=== PATIENT | male | born 1960 | race American Indian/Alaskan Native ===

== ENCOUNTER 2017-07-08 11:16 | Inpatient (IN) | payer MEDICARE, BC ==
[2017-07-08 13:15] LABS: BASO # 0.1 K/uL (0.0-0.2); EOS # 0.1 K/uL (0.0-0.7); EOS % 1.2 % (0.0-4.0); HEMOGLOBIN 13.6 g/dL (12.0-18.0); LYMPH % 18.8 % (20.0-40.0); MEAN CELL VOLUME 96.1 fL (80.0-94.0); MEAN CORPUSCULAR HEMOGLOBIN 32.6 pg (27.0-31.0); MEAN CORPUSCULAR HGB CONC 33.9 g/dL (33.0-37.0); MEAN PLATELET VOLUME 9.2 fL (7.2-11.7); MONO # 0.5 K/uL (0.0-0.8); MONO % 8.7 % (0.0-10.0); NEUT # 3.9 K/uL (1.8-7.0); NEUT % 70.3 % (50.0-75.0); NRBC % 0.1 % (0.0-2.0); RBC 4.18 Mil/uL (4.40-5.90); RED CELL DISTRIBUTION WIDTH 15.4 % (11.5-14.5); WHITE BLOOD COUNT 5.6 K/uL (4.8-10.8)
--- NOTE | 2017-07-08 13:23 | C.PDOC ---
History Of Present Illness 57 yo male w/PMHx of HTN, DM, ESRD ( on HD M,W,Fr), PVD come in to ED after was evaluated by for further evaluation of Right foot pain, chronic ulcers. Pt reports, pain from Right knee down to Right foot chronic for past few weeks, associated with non-healing ulcers over Right foot. Otherwise, pt denies fever, chills, CP, SOB, dyspnea, diaphoresis, palpitation, denies known trauma or injury, denies new weakness, numbness, sensory or vascular deficit to Right leg. Ambulate to ED, not in any apparent distress. Time Seen by Provider: 07/08/17 12:34 Chief Complaint (Nursing): Medical Clearance History Per: Patient Past Medical History Reviewed: Historical Data, Nursing Documentation, Vital Signs Vital Signs: Last Vital Signs Temp 98 F 07/08/17 11:27 Pulse 101 H 07/08/17 11:27 Resp 18 07/08/17 11:27 BP 116/77 07/08/17 11:27 Pulse Ox 98 07/08/17 13:30 - Medical History PMH: CHF, Diabetes, HTN, End Stage Renal Disease Surgical History: Pacemaker Family History: States: No Known Family Hx - Social History Hx Alcohol Use: No Hx Substance Use: No - Immunization History Hx Tetanus Toxoid Vaccination: No Hx Influenza Vaccination: No Hx Pneumococcal Vaccination: No Review Of Systems Except As Marked, All Systems Reviewed And Found Negative. Constitutional: Negative for: Fever, Chills Eyes: Negative for: Vision Change ENT: Negative for: Throat Pain Cardiovascular: Negative for: Chest Pain, Palpitations Respiratory: Negative for: Cough, Shortness of Breath, Wheezing Gastrointestinal: Negative for: Nausea, Vomiting, Abdominal Pain Musculoskeletal: Positive for: Leg Pain, Foot Pain. Negative for: Neck Pain Skin: Positive for: Lesions Neurological: Negative for: Numbness, Altered Mental Status Physical Exam - Physical Exam Appears: Well, Non-toxic, No Acute Distress Skin: Normal Color, Warm, Dry, Other (Right foot small tender ulcer over dorsal foot, no edema, no eruthema, no discharges.) Eye(s): bilateral: PERRL Nose: No Flaring, No Discharge Oral Mucosa: Moist, No Drooling Tongue: Normal Appearing Lips: Normal Appearing Throat: No Drooling Neck: Trachea Midline, Supple Cardiovascular: Rhythm Regular Respiratory: No Decreased Breath Sounds, No Accessory Muscle Use, No Stridor, No Wheezing Gastrointestinal/Abdominal: Soft, No Tenderness Extremity: Normal ROM (B/L LEs), Tenderness (diffuse Right lowr leg), No Deformity, No Swelling Neurological/Psych: Oriented x3, Normal Speech, Normal Motor, Normal Sensation, Normal Reflexes ED Course And Treatment - Laboratory Results Result Diagrams: 07/08/17 13:04 07/08/17 13:04 O2 Sat by Pulse Oximetry: 98 Pulse Ox Interpretation: Normal Disposition - Disposition Disposition: HOSPITALIZED Disposition Time: 14:08 Condition: STABLE Forms: [facility] ([place]) - Clinical Impression Clinical Impression: PVD (peripheral vascular disease), Gangrene, ESRD (end stage renal disease)
[2017-07-08 13:24] LABS: PROTHROMBIN TIME 11.3 SECONDS (9.7-12.2)
[2017-07-08 13:33] LABS: CALCIUM 10.2 mg/dl (8.6-10.4)
--- NOTE | 2017-07-08 13:37 | RAD ---
HISTORY: COMPARISON: No prior. TECHNIQUE: Chest PA and lateral FINDINGS: LINES AND TUBES: There is a right axillary endovascular stent graft. LUNG AND PLEURA: The lungs are well inflated and clear. HEART AND MEDIASTINUM: The heart is not enlarged. Atherosclerotic aortic arch calcifications are present. There is a left-sided AICD. The hilar and mediastinal contours are within normal limits. SKELETAL STRUCTURES: The bony structures are within normal limits for the patient's age. VISUALIZED UPPER ABDOMEN: Normal. OTHER FINDINGS: None. IMPRESSION: No active pulmonary disease.
--- NOTE | 2017-07-08 14:57 | CP.PCM.CON ---
History of Present Illness - History of Present Illness History of Present Illness: Vascular Surgery: Dr Wiggins Patient is a 57-year-old male with a PMHx of HTN, DM, ESRD (on HD M,W,Fr) and PVD who was consulted for evaluation of right foot pain and foot ulcers. His was present at bedside. He was seen by Dr. Wiggins earlier today and was sent to the hospital. Patient says that the pain started 1 week ago. He describes the pain as progressive, constant, sharp and burning. Walking makes the pain worse. He has tried Motrin and a cream he cannot remember the name of to help alleviate the pain. He reports this helps a little. He also has episodic leg cramping. Patient is diabetic and has had peripheral neuropathy in his hands and feet for many years now. Reports that he has dizziness and nausea when looking up that started 1 week ago when his foot pain began. ROS: +right foot ulcer, foot pain, leg cramping, dizziness, nausea, sweating, constipation, blurry vision, cough Denies fever, chills, CP, SOB, dyspnea, palpitation, changes in urination, trouble swallowing, vomiting, abdominal pain, diarrhea, denies known trauma or injury, denies new weakness, numbness, sensory or vascular deficit to right leg PMH: ESRD, DM, CHF, R eye cataract, pacemaker PSH: cardiac cath 2005, pacemaker 2005, right eye surgery 2008, dialysis graft 2011 Fam Hx: father diabetic with multiple amputations, grandmother - [place], stroke, grandfather - [place], son - from [place] January of last year Social: past smoker - 2 PPD; quit 20 yrs ago. Occasional alcohol use (beer). Denies illicit drug use. Review of Systems - Review of Systems All systems: reviewed and no additional remarkable complaints except Review of Systems: As per HPI Past Patient History - Infectious Disease Hx of Infectious Diseases: None - Past Medical History & Family History Past Medical History?: Yes Pertinent Family History: As per HPI - Past Social History Smoking Status: Former Smoker Alcohol: Occasional Drugs: Denies - CARDIAC Hx Congestive Heart Failure: Yes Hx Hypertension: Yes Hx Pacemaker: Yes Hx Peripheral Vascular Disease: Yes - RENAL Hx Dialysis: Yes Type of Dialysis Access: right shunt Date of Last Dialysis Treatment: 07/07/17 - ENDOCRINE/METABOLIC Hx Diabetes Mellitus Type 2: Yes - PSYCHIATRIC Hx Substance Use: No - SURGICAL HISTORY Hx Surgeries: Yes Other/Comment: pacemaker insertion - ANESTHESIA Hx Anesthesia: Yes Hx Anesthesia Reactions: No Hx Malignant Hyperthermia: No Meds Allergies/Adverse Reactions: Allergies Allergy/AdvReac Type Severity Reaction Status Date / Time peanut Allergy Verified 07/08/17 11:31 strawberry Allergy Verified 07/08/17 11:31 Physical Exam - Constitutional Appears: Well, Non-toxic, Toxic, No Acute Distress - Head Exam Head Exam: ATRAUMATIC, NORMAL INSPECTION, NORMOCEPHALIC - Eye Exam Eye Exam: EOMI, Normal appearance, PERRL Pupil Exam: NORMAL ACCOMODATION - ENT Exam ENT Exam: Mucous Membranes Moist - Neck Exam Neck exam: Positive for: Normal Inspection - Respiratory Exam Respiratory Exam: Clear to Auscultation Bilateral, NORMAL BREATHING PATTERN - Cardiovascular Exam Cardiovascular Exam: REGULAR RHYTHM, RRR, +S1, +S2. absent: Rubs, Systolic Murmur - GI/Abdominal Exam GI & Abdominal Exam: Normal Bowel Sounds, Soft. absent: Tenderness - Extremities Exam Additional comments: Right foot ulcer over dorsal foot, tender, no edema, erythema, or discharge - Skin Skin Exam: Abrasion Results - Vital Signs Recent Vital Signs: Last Vital Signs Temp 98 F 07/08/17 11:27 Pulse 101 H 07/08/17 11:27 Resp 18 07/08/17 11:27 BP 116/77 07/08/17 11:27 Pulse Ox 98 07/08/17 14:10 - Labs Result Diagrams: 07/08/17 13:04 07/08/17 13:04 Labs: Laboratory Results - last 24 hr 07/08/17 07/08/17 07/08/17 13:04 13:04 13:04 WBC 5.6 RBC 4.18 L Hgb 13.6 Hct 40.2 MCV 96.1 H MCH 32.6 H MCHC 33.9 RDW 15.4 H Plt Count 163 MPV 9.2 Neut % (Auto) 70.3 Lymph % (Auto) 18.8 L [place] % (Auto) 8.7 Eos % (Auto) 1.2 Baso % (Auto) 1.0 Neut # (Auto) 3.9 Lymph # (Auto) 1.0 [place] # (Auto) 0.5 Eos # (Auto) 0.1 Baso # (Auto) 0.1 PT 11.3 INR 1.0 APTT 32 Sodium 141 Potassium 4.1 Chloride 93 L Carbon Dioxide 28 Anion Gap 24 H BUN 47 H Creatinine 11.1 H* Est GFR ( Amer) 6 Est GFR (Non-Af Amer) 5 Random Glucose 166 H Calcium 10.2 Total Bilirubin 0.6 AST 36 ALT 33 Alkaline Phosphatase 74 Total Protein 7.9 Albumin 4.0 Globulin 4.0 H Albumin/Globulin Ratio 1.0 Assessment & Plan - Assessment and Plan (Free Text) Assessment: 57M w/ PMH of ESRD on HD, DM, CHF: Sx consulted for right foot pain and right foot ulcer likely due to PVD. Plan: Admit CTA of abd/pel w/ ileofem runoff arterial duplex b/l may need to coordinate CTA with dialysis schedule further recs pending work-up d/w Dr Rosalie Che, PGY3 - Date & Time Date: 07/08/17 Time: 15:11
--- NOTE | 2017-07-08 15:23 | CP.PCM.CON ---
History of Present Illness - History of Present Illness History of Present Illness: Nephrology Consultation Note: Assessment: Stable Diabetic chronic Kidney Disease (E11.22) Hypertensive Chronic Kidney Disease (I12.0) End stage renal disease (N18.6) dependence on hemodialysis (Z99.2) (MWF) via AVF Anemia (D64.9), Hyperphosphatemia (E83.39), Secondary Hyperparathyroidism (E21.1 ), HTN (I12.0) PVD with non healing Rt leg ulcer hx of PPM Plan: No acute need for dialysis today. Will plan for dialysis tomorrow. Continue with Nephrovite 1 tab/day. PRBC as needed for anemia. not On ZACHERY as last Hb 13.8 Continue with phos binders home dose, check phos level Continue with calcitriol BP control with meds as ordered. Glycemic control, Dialysis consistent diet Further work up/management as per primary team Dose meds/antibiotics (if needed) for ESRD status. Avoid fleets enema/magnesium based laxatives. Thanks for allowing me to participate in care of your patient. Will follow patient with you. Please call if any Qs Dr Obed Ortiz Office: [phone] Chief Complaint;leg ulcer HPI: Pt is a 57 M with hx of ESRD on hemodialysis (MWF) via, last dialysis mon, chronic anemia, hyperphosphatemia, secondary hyperparathyroidism, Diabetes Mellitus, hypertension, PVD presented with complaints of leg ulcer and leg claudication pain concerns for PVD and being planned for PVD eval and further interventions renal consult for ESRD management. he has been on HD x 6 years ROS: Cardiovascular: No chest pain. Pulmonary: No shortness of breath Gastrointestinal: denies abdominal pain No nausea. No vomiting. Genitourinary: No pain while urinating. Denies blood in urine. makes only small amount of urine All other negative except as mentioned in HPI Physical Examination: General Appearance: Comfortable, in no acute respiratory distress, co-operative . Vitals reviewed and noted as below Head; Atraumatic, normocephalic ENT: no ulcers no thrush. Tongue is midline. Oropharynx: no rash or ulcers. EYES: Pupils are equal, round and reactive to light accommodation. Eye muscles and extraocular movement intact. Sclera is anicteric. Neck; supple no lymphadenopathy, no thyromegaly or bruit Lungs: Normal respiratory rate/effort. Breath sounds bilateral equal and clear Heart: Normal rate. s1s2 normal. No rub or gallop. Extremities: no edema. No varicose veins. RLE in dressing Neurological: Patient is alert, awake and oriented to person, place and time. No focal deficit. Strength bilateral appropriate and equal Skin: Warm and dry. Normal turgor. No rash. Palpitation: Normal elasticity for age Abdomen: Abdomen is soft. Bowel sounds +. There is no abdominal tenderness, no guarding/rigidity or organomegaly Psych: normal insight and normal affect/mood MSK: no joint tenderness or swelling. Digits and nails normal, no deformity : kidney or bladder not palpable Access: AVF Labs/imaging reviewed. Past medical history, past surgical history, family history, social history, allergy reviewed and noted as below Family Hx: no hx of CKD. Non contributory Past Patient History - Infectious Disease Hx of Infectious Diseases: None - Past Medical History & Family History Past Medical History?: Yes - Past Social History Smoking Status: Former Smoker Alcohol: Occasional Drugs: Denies - CARDIAC Hx Congestive Heart Failure: Yes Hx Hypertension: Yes Hx Pacemaker: Yes Hx Peripheral Vascular Disease: Yes - RENAL Hx Dialysis: Yes Type of Dialysis Access: right shunt Date of Last Dialysis Treatment: 07/07/17 - ENDOCRINE/METABOLIC Hx Diabetes Mellitus Type 2: Yes - PSYCHIATRIC Hx Substance Use: No - SURGICAL HISTORY Hx Surgeries: Yes Other/Comment: pacemaker insertion - ANESTHESIA Hx Anesthesia: Yes Hx Anesthesia Reactions: No Hx Malignant Hyperthermia: No Meds Allergies/Adverse Reactions: Allergies Allergy/AdvReac Type Severity Reaction Status Date / Time peanut Allergy Verified 07/08/17 11:31 strawberry Allergy Verified 07/08/17 11:31 - Medications Medications: Current Medications Vitamin B Complex/Vit C/Folic Acid (Nephro-Hair) 1 tab PO 0800 JERED Results - Vital Signs Recent Vital Signs: Last Vital Signs Temp 98 F 07/08/17 11:27 Pulse 101 H 07/08/17 11:27 Resp 18 07/08/17 11:27 BP 116/77 07/08/17 11:27 Pulse Ox 98 07/08/17 14:10 - Labs Result Diagrams: 07/08/17 13:04 07/08/17 13:04 Labs: Laboratory Results - last 24 hr 07/08/17 07/08/17 07/08/17 13:04 13:04 13:04 WBC 5.6 RBC 4.18 L Hgb 13.6 Hct 40.2 MCV 96.1 H MCH 32.6 H MCHC 33.9 RDW 15.4 H Plt Count 163 MPV 9.2 Neut % (Auto) 70.3 Lymph % (Auto) 18.8 L [place] % (Auto) 8.7 Eos % (Auto) 1.2 Baso % (Auto) 1.0 Neut # (Auto) 3.9 Lymph # (Auto) 1.0 [place] # (Auto) 0.5 Eos # (Auto) 0.1 Baso # (Auto) 0.1 PT 11.3 INR 1.0 APTT 32 Sodium 141 Potassium 4.1 Chloride 93 L Carbon Dioxide 28 Anion Gap 24 H BUN 47 H Creatinine 11.1 H* Est GFR ( Amer) 6 Est GFR (Non-Af Amer) 5 Random Glucose 166 H Calcium 10.2 Total Bilirubin 0.6 AST 36 ALT 33 Alkaline Phosphatase 74 Total Protein 7.9 Albumin 4.0 Globulin 4.0 H Albumin/Globulin Ratio 1.0
[2017-07-08] MEDS ORDERED: Iodixanol 320 mg/ml 150 ml Bottle IV ONE (15:27)
--- NOTE | 2017-07-08 19:27 | CP.PCM.HP ---
History of Present Illness - History of Present Illness History of Present Illness: 57-year-old man with history of for diabetes hypertension and says that his renal disease on hemodialysis Friday for last 6 years seen by came in with the pain on the right foot with the foot ulcers patient was seen by Dr. Boudreaux and also seen by the medical device sales consultant who works with Dr. Wiggins Patient describes has that been going on for almost 1 week and which is progressive constant sharp and to a point where Motrin especially not much patient denies any fever patient denies any chills patient complains of leg pain. Patient denies nausea vomiting Review of system right foot ulcer foot pain leg cramping dizziness complains of constipation Denies fever chills chest pain shortness of breath blurring of vision Present on Admission - Present on Admission Any Indicators Present on Admission: No Past Patient History - Infectious Disease Hx of Infectious Diseases: None - Past Medical History & Family History Past Medical History?: Yes - Past Social History Smoking Status: Former Smoker Alcohol: Occasional Drugs: Denies - CARDIAC Hx Congestive Heart Failure: Yes Hx Hypertension: Yes Hx Pacemaker: Yes Hx Peripheral Vascular Disease: Yes - RENAL Hx Dialysis: Yes Type of Dialysis Access: right shunt Date of Last Dialysis Treatment: 07/07/17 - ENDOCRINE/METABOLIC Hx Diabetes Mellitus Type 2: Yes - PSYCHIATRIC Hx Substance Use: No - SURGICAL HISTORY Hx Surgeries: Yes Other/Comment: pacemaker insertion - ANESTHESIA Hx Anesthesia: Yes Hx Anesthesia Reactions: No Hx Malignant Hyperthermia: No Meds Allergies/Adverse Reactions: Allergies Allergy/AdvReac Type Severity Reaction Status Date / Time peanut Allergy Verified 07/08/17 11:31 strawberry Allergy Verified 07/08/17 11:31 Results - Vital Signs Recent Vital Signs: Last Vital Signs Temp 98.1 F 07/08/17 17:10 Pulse 78 07/08/17 17:10 Resp 16 07/08/17 17:10 BP 99/78 L 07/08/17 17:10 Pulse Ox 100 07/08/17 17:10 - Labs Result Diagrams: 07/08/17 13:04 07/08/17 13:04 Labs: Laboratory Results - last 24 hr 07/08/17 07/08/17 07/08/17 13:04 13:04 13:04 WBC 5.6 RBC 4.18 L Hgb 13.6 Hct 40.2 MCV 96.1 H MCH 32.6 H MCHC 33.9 RDW 15.4 H Plt Count 163 MPV 9.2 Neut % (Auto) 70.3 Lymph % (Auto) 18.8 L [place] % (Auto) 8.7 Eos % (Auto) 1.2 Baso % (Auto) 1.0 Neut # (Auto) 3.9 Lymph # (Auto) 1.0 [place] # (Auto) 0.5 Eos # (Auto) 0.1 Baso # (Auto) 0.1 PT 11.3 INR 1.0 APTT 32 Sodium 141 Potassium 4.1 Chloride 93 L Carbon Dioxide 28 Anion Gap 24 H BUN 47 H Creatinine 11.1 H* Est GFR ( Amer) 6 Est GFR (Non-Af Amer) 5 Random Glucose 166 H Calcium 10.2 Total Bilirubin 0.6 AST 36 ALT 33 Alkaline Phosphatase 74 Total Protein 7.9 Albumin 4.0 Globulin 4.0 H Albumin/Globulin Ratio 1.0 Assessment & Plan - Assessment and Plan (Free Text) Plan: CTA of abd/pel w/ ileofem runoff arterial duplex b/l may need to coordinate CTA with dialysis schedule further recs pending work-up renal consult vascular surg consult mx as ordered
[2017-07-08] MEDS ORDERED: Vancomycin 1 gm/NS 200 ml 1 GM/200 ML BAG IVPB SCH (20:00)
[2017-07-09] MEDS: Multivitamin Vitamin B Complex (Nephro-Vite) Tab PO SCH (07:48)
[2017-07-09] MEDS: Lidocaine/Prilocaine 2.5%-2.5% Cream (5 gm) TOP SCH (08:00)
--- NOTE | 2017-07-09 09:22 | CT ---
PROCEDURE: CT Angiography Abdomen, Pelvis and Lower Extremity with Contrast HISTORY: Right foot pain, chronic. ulcer COMPARISON: None. TECHNIQUE: Technique: CT angiography of the abdomen, pelvis and bilateral lower extremities performed in the arterial phase of enhancement. Coronal and sagittal reformats, and well as rotating MIP images of the vessels generated at the workstation. Intravenous contrast dose: 100 milliliters Visipaque 320 Radiation dose: Total exam DLP = 1955.02 MGy-cm. This CT exam was performed using one or more of the following dose reduction techniques: Automated exposure control, adjustment of the mA and/or kV according to patient size, and/or use of iterative reconstruction technique. FINDINGS: CT ANGIOGRAPHY: ABDOMINAL AORTA:: The abdominal is unremarkable. MAJOR AORTIC BRANCHES: Celiac [place]: Unremarkable. Superior mesenteric artery: Unremarkable. Inferior mesenteric artery: Unremarkable. Renal arteries: Unremarkable. PELVIC ARTERIES: Right Common Iliac: Unremarkable. Right External Iliac: Unremarkable. Right Internal Iliac: Unremarkable. Left Common Iliac: Unremarkable. Left External Iliac: Unremarkable. Left Internal Iliac: Unremarkable. RIGHT LOWER EXTREMITY ARTERIES: Right Common Femoral: Unremarkable. Right Superficial Femoral: There is moderate stenosis of the distal SFA. Right Profunda Femoris: Unremarkable. Right Popliteal:There is moderate stenosis of the popliteal artery. Right Anterior Tibial: Severe stenosis of the proximal anterior tibial artery. There is occlusion of the distal anterior tibial artery. Right Tibioperoneal Trunk: Moderate calcific plaque of the tibioperoneal trunk limits evaluation per Right Posterior Tibial: Severe stenosis of the proximal posterior tibial artery and an occlusion of the distal posterior tibial artery. Right Peroneal: Severe calcific plaque throughout the peroneal artery which limits evaluation. The peroneal artery is believed to be either severely stenotic in the mid and distal segment or occluded. Right dorsalis pedis : Unremarkable. LEFT LOWER EXTREMITY ARTERIES: Left Common Femoral: Unremarkable. Left Superficial Femoral: Unremarkable. Left Profunda Femoris: Unremarkable. Left Popliteal: Unremarkable. Left Anterior Tibial: severe stenosis of the mid anterior tibial artery. The distal anterior tibial artery is patent. Left Tibioperoneal Trunk: Moderate stenosis of the tibioperoneal artery. Left Posterior Tibial: Unremarkable Left Peroneal: Moderate calcific plaque of the peroneal artery with possible moderate to severe stenosis of the mid and distal segment. Left Dorsalis pedis: Unremarkable. NON-ANGIOGRAPHIC ASPECT OF THE EXAM: LOWER THORAX: Unremarkable. LIVER: Unremarkable. No gross lesion or ductal dilatation. GALLBLADDER AND BILE DUCTS: Unremarkable. PANCREAS: Unremarkable. No gross lesion or ductal dilatation. SPLEEN: Unremarkable. ADRENALS: Unremarkable. No mass. KIDNEYS AND URETERS: Unremarkable. No hydronephrosis. No solid mass. STOMACH AND BOWEL: Unremarkable. No obstruction. No gross mural thickening. APPENDIX: Normal appendix. PERITONEUM: Unremarkable. No free fluid. No free air. LYMPH NODES: Unremarkable. No enlarged lymph nodes. BLADDER: Unremarkable. REPRODUCTIVE: Unremarkable. BONES: No acute fracture. OTHER FINDINGS: None. IMPRESSION: CT ANGIOGRAM ABDOMEN/PELVIS: 1. Essentially unremarkable CT angiogram of the abdomen pelvis. LEFT LOWER EXTREMITY CT ANGIOGRAM: 1. Common femoral artery, profunda femoral artery, superficial femoral artery, popliteal artery normal. 2. Runoff shows a patent posterior tibial artery. The tibioperoneal artery is heavily calcified which limits evaluation. There is severe stenosis or occlusion of the mid peroneal artery and also of the mid anterior tibial artery. RIGHT LOWER EXTREMITY CT ANGIO: 1. Common femoral artery profunda femoral are normal. 2. Moderate stenosis of the distal superficial femoral artery and popliteal artery. 3. Runoff shows severe calcific plaque and moderate stenosis of the proximal anterior tibial artery. There is occlusion of the distal anterior tibial artery. 4. Both the peroneal and posterior tibial artery have moderate severe calcific plaque and are possibly occluded in the mid and distal segments.
--- NOTE | 2017-07-09 10:13 | CP.PCM.CON ---
History of Present Illness - History of Present Illness History of Present Illness: Podiatry note for Dr. Gonzalez 57 yo male patient w/PMHx of HTN, DM, ESRD ( on HD M,W,Fr), PVD was seen at bedside this morning after request for podiatry consultation. Patient is resting comfortably in bed with no overnight acute distress. This patient is well known to Dr. Gonzalez. Patient states he developed open ulceration to plantar aspect of right foot for a long time which have now closed. He does not recall how the ulceration started. Patient complains of mild pain to right lower extremity distal to ankle joint. Patient denies of any other pedal complaints. Patient denies of any N/V/F/C or SOB today Past Patient History - Infectious Disease Hx of Infectious Diseases: None - Past Medical History & Family History Past Medical History?: Yes - Past Social History Smoking Status: Former Smoker Alcohol: Occasional Drugs: Denies - CARDIAC Hx Congestive Heart Failure: Yes Hx Hypertension: Yes Hx Pacemaker: Yes Hx Peripheral Vascular Disease: Yes - RENAL Hx Dialysis: Yes Type of Dialysis Access: right shunt Date of Last Dialysis Treatment: 07/07/17 - ENDOCRINE/METABOLIC Hx Diabetes Mellitus Type 2: Yes - MUSCULOSKELETAL/RHEUMATOLOGICAL Hx Falls: No - PSYCHIATRIC Hx Substance Use: No - SURGICAL HISTORY Hx Surgeries: Yes Other/Comment: pacemaker insertion - ANESTHESIA Hx Anesthesia: Yes Hx Anesthesia Reactions: No Hx Malignant Hyperthermia: No Meds Allergies/Adverse Reactions: Allergies Allergy/AdvReac Type Severity Reaction Status Date / Time peanut Allergy Verified 07/08/17 11:31 strawberry Allergy Verified 07/08/17 11:31 - Medications Medications: Current Medications Heparin Sodium (Porcine) (Heparin) 5,000 units SC Q12 [facility] Ceftriaxone Sodium 1 gm/ (Sodium Chloride) 100 mls @ 100 mls/hr IVPB DAILY [facility] PRN Reason: Protocol Stop: 07/19/17 10:01 Vancomycin/Sodium Chloride (Vancomycin 1 Gm/Ns 200 Ml) 1 gm in 200 mls @ 133 mls/hr IVPB Q24H [facility] PRN Reason: Protocol Stop: 07/13/17 20:01 Last Admin: 07/08/17 21:04 Dose: 133 mls/hr Lidocaine/Prilocaine (Emla) 0.5 gm TOP MWF [facility] Pneumococcal Polyvalent Vaccine (Pneumovax 23 Vaccine) 0.5 ml IM .ONCE ONE Stop: 07/10/17 10:01 Sevelamer Carbonate (Renvela) 2,400 mg PO TIDCC [facility] Last Admin: 07/09/17 07:48 Dose: 2,400 mg Vitamin B Complex/Vit C/Folic Acid (Nephro-Hair) 1 tab PO 0800 [facility] Last Admin: 07/09/17 07:48 Dose: 1 tab Physical Exam - Constitutional Appears: Well, Non-toxic, No Acute Distress - Head Exam Head Exam: ATRAUMATIC (e) - Extremities Exam Additional comments: Right lower extremity exam DERM: No open wound noted. Early stage ulceration noted to plantar aspect of right foot sub-met head 5. No drainage is noted. No mal-odor noted. No sign of acute infection is noted. VASC: Non-palpable DP and PT noted bilaterally. [employer] less than 3 seconds to all digits ORTHO: Pain on palpation to joints distal to ankle. Decreased ROM 2ndary to guarding NEURO: Gross sensation intact - Neurological Exam Neurological exam: Alert, Oriented x3 - Psychiatric Exam Psychiatric exam: Normal Affect, Normal Mood - Skin Skin Exam: Normal Color, Warm Results - Vital Signs Recent Vital Signs: Last Vital Signs Temp 97.9 F 07/09/17 09:37 Pulse 89 07/09/17 09:37 Resp 20 07/09/17 09:37 BP 134/85 07/09/17 09:37 Pulse Ox 98 07/09/17 09:37 - Labs Result Diagrams: 07/08/17 13:04 07/08/17 13:04 Labs: Laboratory Results - last 24 hr 07/08/17 07/08/17 07/08/17 13:04 13:04 13:04 WBC 5.6 RBC 4.18 L Hgb 13.6 Hct 40.2 MCV 96.1 H MCH 32.6 H MCHC 33.9 RDW 15.4 H Plt Count 163 MPV 9.2 Neut % (Auto) 70.3 Lymph % (Auto) 18.8 L [place] % (Auto) 8.7 Eos % (Auto) 1.2 Baso % (Auto) 1.0 Neut # (Auto) 3.9 Lymph # (Auto) 1.0 [place] # (Auto) 0.5 Eos # (Auto) 0.1 Baso # (Auto) 0.1 PT 11.3 INR 1.0 APTT 32 Sodium 141 Potassium 4.1 Chloride 93 L Carbon Dioxide 28 Anion Gap 24 H BUN 47 H Creatinine 11.1 H* Est GFR ( Amer) 6 Est GFR (Non-Af Amer) 5 Random Glucose 166 H Calcium 10.2 Total Bilirubin 0.6 AST 36 ALT 33 Alkaline Phosphatase 74 Total Protein 7.9 Albumin 4.0 Globulin 4.0 H Albumin/Globulin Ratio 1.0 Assessment & Plan - Assessment and Plan (Free Text) Assessment: 57 yo male patient with right foot chronic ulceration Plan: Patient was seen, evaluated labs and vitals reviewed discussed in detail with attending Dr. Gonzalez Right foot dressed with DSD Arterial Duplex result pending Possible bypass intervention by Dr. Wiggins Podiatry will continue to follow inhouse
--- NOTE | 2017-07-09 10:32 | VASCLAB ---
STUDY DESCRIPTION: HISTORY: Right foot pain, chronic ulcers PRIORS: None. TECHNIQUE: Pulse volume recording waveforms and segmental pressures of bilateral lower extremities at multiple levels were obtained. Ankle Brachial Indices (ABIs) were calculated. Report prepared by KARTHIKEYAN Keita, RVT RIGHT LOWER EXTREMITY: * Brachial artery: Pressure - mmHg. * High thigh: Pressure - 220 mmHg: Ratio - NC: PVR waveform - Pulsatile * Low thigh: Pressure - 181 mmHg: Ratio - 1.89 PVR waveform: Pulsatile * Calf: Pressure - 220 mmHg: Ratio - CN PVR waveform: Pulsatile * Posterior tibial Artery: Pressure - mmHg: Ratio - PVR waveform: Pulsatile * Dorsalis pedis Artery: Pressure - 109 mmHg: Ratio - 1.14 PVR waveform: Pulsatile * Great toe: Pressure - mmHg: Ratio - PVR waveform: Ankle brachial index (RICKEY): 1.14 LEFT LOWER EXTREMITY: * Brachial artery: Pressure - 96 mmHg. * High thigh: Pressure - 220 mmHg: Ratio - NC: PVR waveform - Pulsatile * Low thigh: Pressure - 148 mmHg: Ratio - 1.54 PVR waveform: Pulsatile * Calf: Pressure - 220 mmHg: Ratio - NC PVR waveform: Pulsatile * Posterior tibial Artery: Pressure - mmHg: Ratio - PVR waveform: Pulsatile * Dorsalis pedis Artery: Pressure - 50 mmHg: Ratio - 0.52 PVR waveform: Pulsatile * Great toe: Pressure - mmHg: Ratio - PVR waveform: Ankle brachial index (RICKEY): 0.52 OTHER FINDINGS: PHYLICIA Pitts notified about the findings. IMPRESSION: Right: There was no evidence of hemodynamically significant arterial insufficiency in the right lower extremity. However, metatarsal pulse volume recording waveform is suggestive of distal small artery diseases. Left: This exam reveals moderately decreased perfusion of the left lower extremity, noted at the tibial and distal small artery levels.
--- NOTE | 2017-07-09 10:57 | CP.PCM.PN ---
Subjective - Date & Time of Evaluation Date of Evaluation: 07/09/17 Time of Evaluation: 09:15 - Subjective Subjective: clinically same Objective - Vital Signs/Intake and Output Vital Signs (last 24 hours): Temp Pulse Resp BP Pulse Ox 97.4 F L 69 16 112/70 98 07/09/17 10:11 07/09/17 10:11 07/09/17 10:11 07/09/17 10:40 07/09/17 09:55 Intake and Output: 07/09/17 07/09/17 06:59 18:59 Intake Total 550 Balance 550 - Medications Medications: Current Medications Heparin Sodium (Porcine) (Heparin) 5,000 units SC Q12 [facility] Last Admin: 07/09/17 10:37 Dose: Not Given Ceftriaxone Sodium 1 gm/ (Sodium Chloride) 100 mls @ 100 mls/hr IVPB DAILY [facility] PRN Reason: Protocol Stop: 07/19/17 10:01 Last Admin: 07/09/17 10:38 Dose: Not Given Vancomycin HCl 500 mg/ Sodium (Chloride) 100 mls @ 100 mls/hr IVPB ONCE ONE PRN Reason: Protocol Stop: 07/09/17 11:40 Vancomycin/Sodium Chloride (Vancomycin 1 Gm/Ns 200 Ml) 1 gm in 200 mls @ 133 mls/hr IVPB MWF [facility] PRN Reason: Protocol Stop: 07/16/17 12:01 Lidocaine/Prilocaine (Emla) 0.5 gm TOP MWF [facility] Pneumococcal Polyvalent Vaccine (Pneumovax 23 Vaccine) 0.5 ml IM .ONCE ONE Stop: 07/10/17 10:01 Sevelamer Carbonate (Renvela) 2,400 mg PO TIDCC [facility] Last Admin: 07/09/17 07:48 Dose: 2,400 mg Vitamin B Complex/Vit C/Folic Acid (Nephro-Hair) 1 tab PO 0800 [facility] Last Admin: 07/09/17 07:48 Dose: 1 tab - Labs Labs: 07/08/17 13:04 07/08/17 13:04 PT 11.3 SECONDS (9.7-12.2) 07/08/17 13:04 INR 1.0 07/08/17 13:04 APTT 32 SECONDS (21-34) 07/08/17 13:04 - Constitutional Appears: Well - Head Exam Head Exam: ATRAUMATIC, NORMAL INSPECTION, NORMOCEPHALIC - Eye Exam Eye Exam: EOMI, Normal appearance, PERRL Pupil Exam: NORMAL ACCOMODATION, PERRL - ENT Exam ENT Exam: Mucous Membranes Moist, Normal Exam - Neck Exam Neck Exam: Full ROM, Normal Inspection. absent: Lymphadenopathy - Respiratory Exam Respiratory Exam: Decreased Breath Sounds - Cardiovascular Exam Cardiovascular Exam: REGULAR RHYTHM, +S1, +S2 - GI/Abdominal Exam GI & Abdominal Exam: Soft, Diminished Bowel Sounds - Rectal Exam Rectal Exam: Deferred Assessment and Plan - Assessment and Plan (Free Text) Plan: Continue hemodialysis Renal consult ID consult Vascular surgery consult Ceftriaxone Zithromax PVD evaluations Continue medication as ordered WBCs 5.6 creatinine is 11.1 Cardiology evaluation if surgery required for cardiology clearance
--- NOTE | 2017-07-09 11:55 | RAD ---
PROCEDURE: Right Foot Radiographs. HISTORY: right foot chronic ulcer. r/o OM COMPARISON: None. FINDINGS: BONES: Limited evaluation without oblique view. No acute fracture. There is penciling deformity of the distal 5th metatarsal of uncertain significance. Remaining visualized osseous structures are unremarkable. No osseous erosion or periosteal reaction appreciated. JOINTS: Normal. SOFT TISSUES: Vascular calcification noted OTHER FINDINGS: None. IMPRESSION: No plain radiographic evidence of osteomyelitis.
[2017-07-09] MEDS ORDERED: Vancomycin 1 gm/NS 200 ml 1 GM/200 ML BAG IVPB SCH (12:00)
--- NOTE | 2017-07-09 14:16 | CP.PCM.PN ---
Subjective - Date & Time of Evaluation Date of Evaluation: 07/09/17 Time of Evaluation: 14:15 - Subjective Subjective: Nephrology Consultation Note: Assessment: Stable Diabetic chronic Kidney Disease (E11.22) Hypertensive Chronic Kidney Disease (I12.0) End stage renal disease (N18.6) dependence on hemodialysis (Z99.2) (MWF) via AVF Anemia (D64.9), Hyperphosphatemia (E83.39), Secondary Hyperparathyroidism (E21.1 ), HTN (I12.0) PVD with non healing Rt leg ulcer hx of PPM Plan: Will plan for dialysis today as ordered. Continue with Nephrovite 1 tab/day. PRBC as needed for anemia. not On ZACHERY as last Hb 13.8 Continue with phos binders home dose, check phos level BP control with meds as ordered. Glycemic control, Dialysis consistent diet Further work up/management as per primary team Dose meds/antibiotics (if needed) for ESRD status. Avoid fleets enema/magnesium based laxatives. vancomycin changed to MWF schedule. check random vanco level prior to next dose. Thanks for allowing me to participate in care of your patient. Will follow patient with you. Please call if any Qs Dr Obed Ortiz Office: [phone] Chief Complaint;leg ulcer HPI: Pt is a 57 M with hx of ESRD on hemodialysis (MWF) via, last dialysis mon, chronic anemia, hyperphosphatemia, secondary hyperparathyroidism, Diabetes Mellitus, hypertension, PVD presented with complaints of leg ulcer and leg claudication pain concerns for PVD and being planned for PVD eval and further interventions renal consult for ESRD management. he has been on HD x 6 years ROS: Cardiovascular: No chest pain. Pulmonary: No shortness of breath Gastrointestinal: denies abdominal pain No nausea. No vomiting. Genitourinary: No pain while urinating. Denies blood in urine. makes only small amount of urine All other negative except as mentioned in HPI Physical Examination: seen on HD General Appearance: Comfortable, in no acute respiratory distress, co-operative . Vitals reviewed and noted as below Head; Atraumatic, normocephalic ENT: no ulcers no thrush. Tongue is midline. Oropharynx: no rash or ulcers. EYES: Pupils are equal, round and reactive to light accommodation. Eye muscles and extraocular movement intact. Sclera is anicteric. Neck; supple no lymphadenopathy, no thyromegaly or bruit Lungs: Normal respiratory rate/effort. Breath sounds bilateral equal and clear Heart: Normal rate. s1s2 normal. No rub or gallop. Extremities: no edema. No varicose veins. RLE in dressing Neurological: Patient is alert, awake and oriented to person, place and time. No focal deficit. Strength bilateral appropriate and equal Skin: Warm and dry. Normal turgor. No rash. Palpitation: Normal elasticity for age Abdomen: Abdomen is soft. Bowel sounds +. There is no abdominal tenderness, no guarding/rigidity or organomegaly Psych: normal insight and normal affect/mood MSK: no joint tenderness or swelling. Digits and nails normal, no deformity : kidney or bladder not palpable Access: AVF Labs/imaging reviewed. Past medical history, past surgical history, family history, social history, allergy reviewed and noted as below Family Hx: no hx of CKD. Non contributory Objective - Vital Signs/Intake and Output Vital Signs (last 24 hours): Temp Pulse Resp BP Pulse Ox 97.9 F 92 H 16 98/68 L 98 07/09/17 13:25 07/09/17 13:25 07/09/17 10:11 07/09/17 13:25 07/09/17 13:25 Intake and Output: 07/09/17 07/09/17 06:59 18:59 Intake Total 550 Balance 550 - Medications Medications: Current Medications Heparin Sodium (Porcine) (Heparin) 5,000 units SC Q12 [facility] Last Admin: 07/09/17 10:37 Dose: Not Given Ceftriaxone Sodium 1 gm/ (Sodium Chloride) 100 mls @ 100 mls/hr IVPB DAILY [facility] PRN Reason: Protocol Stop: 07/19/17 10:01 Last Admin: 07/09/17 10:38 Dose: Not Given Vancomycin/Sodium Chloride (Vancomycin 1 Gm/Ns 200 Ml) 1 gm in 200 mls @ 133 mls/hr IVPB MWF [facility] PRN Reason: Protocol Stop: 07/16/17 12:01 Lidocaine/Prilocaine (Emla) 0.5 gm TOP [facility] Pneumococcal Polyvalent Vaccine (Pneumovax 23 Vaccine) 0.5 ml IM .ONCE ONE Stop: 07/10/17 10:01 Sevelamer Carbonate (Renvela) 2,400 mg PO TIDCC [facility] Last Admin: 07/09/17 14:11 Dose: Not Given Vitamin B Complex/Vit C/Folic Acid (Nephro-Hair) 1 tab PO 0800 [facility] Last Admin: 07/09/17 07:48 Dose: 1 tab - Labs Labs: 07/08/17 13:04 07/08/17 13:04 PT 11.3 SECONDS (9.7-12.2) 07/08/17 13:04 INR 1.0 07/08/17 13:04 APTT 32 SECONDS (21-34) 07/08/17 13:04
--- NOTE | 2017-07-09 15:55 | CP.PCM.PN ---
Subjective - Date & Time of Evaluation Date of Evaluation: 07/09/17 Time of Evaluation: 07:00 - Subjective Subjective: Surgery Progress note. Dr. Wiggins. Pt seen and examined at bedside. No new complaints. No n/v/d. No abdominal pain. does report right foot pain. Objective - Vital Signs/Intake and Output Vital Signs (last 24 hours): Temp Pulse Resp BP Pulse Ox 97.9 F 92 H 16 140/85 98 07/09/17 13:25 07/09/17 13:25 07/09/17 10:11 07/09/17 14:15 07/09/17 13:25 Intake and Output: 07/09/17 07/09/17 06:59 18:59 Intake Total 550 Balance 550 - Medications Medications: Current Medications Heparin Sodium (Porcine) (Heparin) 5,000 units SC Q12 [facility] Last Admin: 07/09/17 10:37 Dose: Not Given Vancomycin/Sodium Chloride (Vancomycin 1 Gm/Ns 200 Ml) 1 gm in 200 mls @ 133 mls/hr IVPB MWF [facility] PRN Reason: Protocol Stop: 07/16/17 12:01 Ceftriaxone Sodium 1 gm/ (Sodium Chloride) 100 mls @ 100 mls/hr IVPB DAILY [facility] PRN Reason: Protocol Lidocaine/Prilocaine (Emla) 0.5 gm TOP MWF [facility] Last Admin: 07/09/17 08:00 Dose: Not Given Pneumococcal Polyvalent Vaccine (Pneumovax 23 Vaccine) 0.5 ml IM .ONCE ONE Stop: 07/10/17 10:01 Sevelamer Carbonate (Renvela) 2,400 mg PO TIDCC [facility] Last Admin: 07/09/17 14:48 Dose: 2,400 mg Vitamin B Complex/Vit C/Folic Acid (Nephro-Hair) 1 tab PO 0800 [facility] Last Admin: 07/09/17 07:48 Dose: 1 tab - Labs Labs: 07/08/17 13:04 07/08/17 13:04 PT 11.3 SECONDS (9.7-12.2) 07/08/17 13:04 INR 1.0 07/08/17 13:04 APTT 32 SECONDS (21-34) 07/08/17 13:04 - Constitutional Appears: Non-toxic, No Acute Distress - Head Exam Head Exam: ATRAUMATIC, NORMAL INSPECTION, NORMOCEPHALIC - Eye Exam Eye Exam: EOMI, Normal appearance - ENT Exam ENT Exam: Mucous Membranes Moist - Respiratory Exam Respiratory Exam: NORMAL BREATHING PATTERN. absent: Accessory Muscle Use, Wheezes, Respiratory Distress - Cardiovascular Exam Cardiovascular Exam: absent: JVD - GI/Abdominal Exam GI & Abdominal Exam: Soft. absent: Guarding, Rigid, Tenderness, Rebound - Extremities Exam Extremities Exam: absent: Calf Tenderness Additional comments: Right foot tenderness. Dressing in place, clean, dry and intact. - Neurological Exam Neurological Exam: Alert, Awake, Oriented x3 - Skin Skin Exam: Dry, Normal Color, Warm Assessment and Plan - Assessment and Plan (Free Text) Assessment: 57oy M with severe PVD here with right foot ulcer. Plan: - To OR tomorrow for selective peripheral angio and possible vascular intervention - NPO past mn - Dressing changes as needed Further recs as per Dr. Rosalie Gaitan PGY1 surgery pager: [phone]
[2017-07-10 07:12] LABS: BASO # 0.1 K/uL (0.0-0.2); BASO % 0.9 % (0.0-2.0); EOS # 0.1 K/uL (0.0-0.7); EOS % 1.4 % (0.0-4.0); HEMOGLOBIN 13.5 g/dL (12.0-18.0); LYMPH # 0.9 K/uL (1.0-4.3); LYMPH % 14.7 % (20.0-40.0); MEAN CELL VOLUME 95.9 fL (80.0-94.0); MEAN CORPUSCULAR HEMOGLOBIN 33.2 pg (27.0-31.0); MEAN CORPUSCULAR HGB CONC 34.6 g/dL (33.0-37.0); MEAN PLATELET VOLUME 9.3 fL (7.2-11.7); MONO # 0.7 K/uL (0.0-0.8); MONO % 10.2 % (0.0-10.0); NEUT # 4.7 K/uL (1.8-7.0); NEUT % 72.8 % (50.0-75.0); RBC 4.07 Mil/uL (4.40-5.90); RED CELL DISTRIBUTION WIDTH 15.5 % (11.5-14.5); WHITE BLOOD COUNT 6.5 K/uL (4.8-10.8)
[2017-07-10 07:19] LABS: PROTHROMBIN TIME 10.7 SECONDS (9.7-12.2)
[2017-07-10] MEDS ORDERED: Midazolam 2 MG/2 ML VIAL ONE ×3 (07:26→08:40)
[2017-07-10] MEDS ORDERED: ePHEDrine 50 mg/ml Inj ONE (07:26)
[2017-07-10] MEDS ORDERED: Phenylephrine 10 mg/ml Inj ONE (07:26)
[2017-07-10 07:38] LABS: ALB/GLOB RATIO 1.1 (1.0-2.1); ALBUMIN 3.8 g/dL (3.5-5.0); CALCIUM 9.1 mg/dl (8.6-10.4)
[2017-07-10] MEDS ORDERED: Lidocaine 2% Inj (20ml) ONE (07:57)
[2017-07-10] MEDS ORDERED: Iodixanol 320 MG/ML 200 ML BOTTLE IV ONE ×2 (08:03→08:04)
[2017-07-10] MEDS: Multivitamin Vitamin B Complex (Nephro-Vite) Tab PO SCH (09:00)
[2017-07-10] MEDS ORDERED: Nitroglycerin 50mg in D5W 50 MG/250 ML BOTTLE IV ONE (09:01)
[2017-07-10] MEDS ORDERED: Verapamil 2 ML ONE (09:01)
--- NOTE | 2017-07-10 09:36 | PCM.SURG1 ---
Surgeon's Initial Post Op Note - Surgeon's Notes Surgeon: danna Outpatient Dietitian: 0 Type of Anesthesia: IV Sedation Anesthesia Administered By: chantel Pre-Operative Diagnosis: gangrene right foot Operative Findings: 80% right popliteal stenosis. severe tibial disease. dorsalis pedis reconstitutes at foot. left severe tibial disease. perclose left groin Post-Operative Diagnosis: same Operation Performed: aortofemoral angiogram via left groin. csi atherectomy of right popliteal artery. balloon dcb 5x60 to right popliteal Specimen/Specimens Removed: 0 Estimated Blood Loss: EBL {In ML}: 10 Blood Products Given: N/A Drains Used: No Drains Post-Op Condition: Good Date of Surgery/Procedure: 07/10/17 Time of Surgery/Procedure: 09:38
[2017-07-10] MEDS ORDERED: Influenza Vaccine 60 mcg/0.5 mL SYR (4YR UP) IM ONE (10:00)
[2017-07-10] MEDS ORDERED: Pneumococcal 23-Valent Vaccine IM ONE (10:00)
--- NOTE | 2017-07-10 14:15 | CP.PCM.PN ---
Subjective - Date & Time of Evaluation Date of Evaluation: 07/10/17 Time of Evaluation: 14:13 - Subjective Subjective: Nephrology Consultation Note: Assessment: Stable Diabetic chronic Kidney Disease (E11.22) Hypertensive Chronic Kidney Disease (I12.0) End stage renal disease (N18.6) dependence on hemodialysis (Z99.2) (MWF) via AVF Anemia (D64.9), Hyperphosphatemia (E83.39), Secondary Hyperparathyroidism (E21.1 ), HTN (I12.0) PVD with non healing Rt foot ulcer s/p atherectomy and ballon angioplasty of Rt popiteal arterry 07/10/17 hx of PPM Plan: Will plan for dialysis tomorrow as ordered. Continue with Nephrovite 1 tab/day. PRBC as needed for anemia. not On ZACHERY as last Hb 13.8 Continue with phos binders home dose BP control with meds as ordered. Glycemic control, Dialysis consistent diet Further work up/management as per primary team Dose meds/antibiotics (if needed) for ESRD status. Avoid fleets enema/magnesium based laxatives. vancomycin changed to MWF schedule. check random vanco level prior to next dose. Thanks for allowing me to participate in care of your patient. Will follow patient with you. Please call if any Qs. d/w and team Dr Obed Ortiz Office: [phone] HPI: Pt is a 57 M with hx of ESRD on hemodialysis (MWF) via, last dialysis mon, chronic anemia, hyperphosphatemia, secondary hyperparathyroidism, Diabetes Mellitus, hypertension, PVD presented with complaints of leg ulcer and leg claudication pain concerns for PVD and being planned for PVD eval and further interventions renal consult for ESRD management. he has been on HD x 6 years ROS: Cardiovascular: No chest pain. Pulmonary: No shortness of breath Gastrointestinal: denies abdominal pain No nausea. No vomiting. Genitourinary: No pain while urinating. Denies blood in urine. makes only small amount of urine All other negative except as mentioned in HPI Physical Examination: General Appearance: Comfortable, in no acute respiratory distress, co-operative . Vitals reviewed and noted as below Head; Atraumatic, normocephalic ENT: no ulcers no thrush. Tongue is midline. Oropharynx: no rash or ulcers. EYES: Pupils are equal, round and reactive to light accommodation. Eye muscles and extraocular movement intact. Sclera is anicteric. Neck; supple no lymphadenopathy, no thyromegaly or bruit Lungs: Normal respiratory rate/effort. Breath sounds bilateral equal and clear Heart: Normal rate. s1s2 normal. No rub or gallop. Extremities: no edema. No varicose veins. ulcer at Rt foot plantar aspect Neurological: Patient is alert, awake and oriented to person, place and time. No focal deficit. Strength bilateral appropriate and equal Skin: Warm and dry. Normal turgor. No rash. Palpitation: Normal elasticity for age Abdomen: Abdomen is soft. Bowel sounds +. There is no abdominal tenderness, no guarding/rigidity or organomegaly Psych: normal insight and normal affect/mood MSK: no joint tenderness or swelling. Digits and nails normal, no deformity : kidney or bladder not palpable Access: AVF Labs/imaging reviewed. Past medical history, past surgical history, family history, social history, allergy reviewed and noted as below Family Hx: no hx of CKD. Non contributory Objective - Vital Signs/Intake and Output Vital Signs (last 24 hours): Temp Pulse Resp BP Pulse Ox 98.2 F 103 H 20 105/69 98 07/10/17 07:49 07/10/17 07:49 07/10/17 07:49 07/10/17 07:49 07/10/17 07:49 Intake and Output: 07/10/17 07/10/17 06:59 18:59 Intake Total 500 Balance 500 - Medications Medications: Current Medications Heparin Sodium (Porcine) (Heparin) 5,000 units SC Q12 [facility] Last Admin: 07/10/17 10:52 Dose: Not Given Vancomycin/Sodium Chloride (Vancomycin 1 Gm/Ns 200 Ml) 1 gm in 200 mls @ 133 mls/hr IVPB MWF [facility] PRN Reason: Protocol Stop: 07/16/17 12:01 Ceftriaxone Sodium 1 gm/ (Sodium Chloride) 100 mls @ 100 mls/hr IVPB DAILY [facility] PRN Reason: Protocol Last Admin: 07/10/17 12:20 Dose: 100 mls/hr Lidocaine/Prilocaine (Emla) 0.5 gm TOP MWF [facility] Last Admin: 07/09/17 08:00 Dose: Not Given Sevelamer Carbonate (Renvela) 2,400 mg PO TIDCC [facility] Last Admin: 07/10/17 12:17 Dose: 2,400 mg Vitamin B Complex/Vit C/Folic Acid (Nephro-Hair) 1 tab PO 0800 [facility] Last Admin: 07/10/17 09:00 Dose: Not Given - Labs Labs: 07/10/17 06:58 07/10/17 06:58 PT 10.7 SECONDS (9.7-12.2) 07/10/17 06:58 INR 1.0 07/10/17 06:58 APTT 33 SECONDS (21-34) 07/10/17 06:58
--- NOTE | 2017-07-10 16:20 | CARD ---
APPROVED REPORT EKG Measurement Heart [id number] <Conclusion> Normal sinus rhythm Left axis deviation Cannot rule out Inferior infarct, age undetermined Abnormal ECG
--- NOTE | 2017-07-10 21:35 | CP.PCM.PN ---
Subjective - Date & Time of Evaluation Date of Evaluation: 07/10/17 Time of Evaluation: 10:00 - Subjective Subjective: clinically same Objective - Vital Signs/Intake and Output Vital Signs (last 24 hours): Temp Pulse Resp BP Pulse Ox 97.8 F 83 20 100/64 97 07/10/17 15:15 07/10/17 15:15 07/10/17 15:15 07/10/17 15:15 07/10/17 15:15 Intake and Output: 07/10/17 07/11/17 18:59 06:59 Intake Total 460 Balance 460 - Medications Medications: Current Medications Heparin Sodium (Porcine) (Heparin) 5,000 units SC Q12 [facility] Last Admin: 07/10/17 10:52 Dose: Not Given Vancomycin/Sodium Chloride (Vancomycin 1 Gm/Ns 200 Ml) 1 gm in 200 mls @ 133 mls/hr IVPB MWF [facility] PRN Reason: Protocol Stop: 07/16/17 12:01 Ceftriaxone Sodium 1 gm/ (Sodium Chloride) 100 mls @ 100 mls/hr IVPB DAILY [facility] PRN Reason: Protocol Last Admin: 07/10/17 12:20 Dose: 100 mls/hr Lidocaine/Prilocaine (Emla) 0.5 gm TOP MWF [facility] Last Admin: 07/09/17 08:00 Dose: Not Given Sevelamer Carbonate (Renvela) 2,400 mg PO TIDCC [facility] Last Admin: 07/10/17 17:39 Dose: 2,400 mg Vitamin B Complex/Vit C/Folic Acid (Nephro-Hair) 1 tab PO 0800 [facility] Last Admin: 07/10/17 09:00 Dose: Not Given - Labs Labs: 07/10/17 06:58 07/10/17 06:58 PT 10.7 SECONDS (9.7-12.2) 07/10/17 06:58 INR 1.0 07/10/17 06:58 APTT 33 SECONDS (21-34) 07/10/17 06:58 - Constitutional Appears: Well - Head Exam Head Exam: ATRAUMATIC, NORMAL INSPECTION, NORMOCEPHALIC - Eye Exam Eye Exam: EOMI, Normal appearance, PERRL Pupil Exam: NORMAL ACCOMODATION, PERRL - ENT Exam ENT Exam: Mucous Membranes Moist, Normal Exam - Neck Exam Neck Exam: Full ROM, Normal Inspection. absent: Lymphadenopathy - Respiratory Exam Respiratory Exam: Decreased Breath Sounds - Cardiovascular Exam Cardiovascular Exam: REGULAR RHYTHM, +S1, +S2 - GI/Abdominal Exam GI & Abdominal Exam: Soft, Diminished Bowel Sounds - Rectal Exam Rectal Exam: Deferred Assessment and Plan - Assessment and Plan (Free Text) Plan: Rocephin continue Continue GI prophylaxis Continue DVT prophylaxis Follow-up with the surgical consent Follow-up with the renal consent Abdominal angiogram status post angioplasty Foot x-ray did not reveal any signs of osteomyelitis
[2017-07-11] MEDS: Multivitamin Vitamin B Complex (Nephro-Vite) Tab PO SCH (07:51)
[2017-07-11] MEDS: Lidocaine/Prilocaine 2.5%-2.5% Cream (5 gm) TOP SCH (08:42)
[2017-07-11 09:58] LABS: BASO # 0.1 K/uL (0.0-0.2); BASO % 1.2 % (0.0-2.0); EOS # 0.1 K/uL (0.0-0.7); EOS % 1.9 % (0.0-4.0); HEMOGLOBIN 12.4 g/dL (12.0-18.0); LYMPH # 0.7 K/uL (1.0-4.3); LYMPH % 11.1 % (20.0-40.0); MEAN CELL VOLUME 94.8 fL (80.0-94.0); MEAN CORPUSCULAR HEMOGLOBIN 32.4 pg (27.0-31.0); MEAN CORPUSCULAR HGB CONC 34.2 g/dL (33.0-37.0); MEAN PLATELET VOLUME 9.3 fL (7.2-11.7); MONO # 0.5 K/uL (0.0-0.8); MONO % 8.3 % (0.0-10.0); NEUT # 4.8 K/uL (1.8-7.0); NEUT % 77.5 % (50.0-75.0); RBC 3.83 Mil/uL (4.40-5.90); RED CELL DISTRIBUTION WIDTH 15.1 % (11.5-14.5); WHITE BLOOD COUNT 6.2 K/uL (4.8-10.8)
--- NOTE | 2017-07-11 10:01 | VAS ---
DATE OF PROCEDURE: 07/10/2017. PREOPERATIVE DIAGNOSIS: Gangrene in the right foot. POSTOPERATIVE DIAGNOSIS: Gangrene in the right foot. PROCEDURE CARRIED OUT: Aortofemoral angiogram via left groin with selective catheterization of right femoral artery, CSI atherectomy of the right popliteal artery, and balloon angioplasty using a 5 mm drug-coated balloon to the right popliteal artery. SURGEON: Victoriano Wiggins Jr., MD SALES SECRETARY: None. ANESTHESIOLOGIST: STITCHER AROUND. INDICATIONS: The patient is a 57-year-old male, on dialysis, who presents with ischemic ulceration/gangrene in the right foot. OPERATIVE FINDINGS: The aorta renal arteries, iliac arteries, and common femoral arteries were free of any significant occlusive disease. On the left side, the superficial femoral artery was patent down to the level of the trifurcation although that was heavily calcified in some areas and detailed images of the tibial vessel run off beyond the trifurcation were not able to be obtained due to the patient's body habitus. On the right side, the superficial femoral artery was patent with multiple areas of stenosis, but none greater than 30%. There was a focal 80% stenosis in the proximal portion of the popliteal artery. Below this, there was severe trifurcation disease with all 3 tibial vessels being included expect for recalcification of the dorsalis pedis in the foot. Subsequent to the performance of the diagnostic arteriogram, a stiff-angled guidewire was advanced over the aortic bifurcation 7-Mexican sheath position in the distal portion of the superficial femoral artery. After we crossed this, we placed through the ViperWire, used a CSI atherectomy device and then deployed and then atherectomized this with some cosmetic change. We subsequently then deployed a 5 mm balloon with improvement down to about 20% stenosis and terminated the procedure. Perclose devices were then deployed in the left groin. OPERATION CARRIED OUT: 1. Aortofemoral angiogram with selective catheterization of right femoral artery. 2. CSI atherectomy of the right popliteal artery. 3. Drug-coated balloon angioplasty of the right popliteal artery. Because of the severe tibial disease, this should result in some improvement. However, if it is not adequate, a bypass through dorsalis pedis artery would be the other option. Victoriano Wiggins Jr., MD cc: Zhang Roy DPM
[2017-07-11] MEDS ORDERED: Aspirin 325 mg EC Tablets PO SCH (10:30)
[2017-07-11 10:31] LABS: ALBUMIN 3.5 g/dL (3.5-5.0)
--- NOTE | 2017-07-11 11:33 | CP.PCM.PN ---
Subjective - Date & Time of Evaluation Date of Evaluation: 07/11/17 Time of Evaluation: 07:45 - Subjective Subjective: PGY2 Resident - Medicine Progress Note Patient seen and examined at bedside in Dialysis. No acute distress. No overnight events. He is POD#1 s/p selective peripheral angio with Right popliteal atherectomy on 07/10/17. He reports +BM yesterday. He has not produced urine in over 6 years. R AV fistual in tact, used during dialysis. Denies f/c, chest pain, SOB, or overt LE pain. 12-point review of systems is otherwise negative without any additional acute complaints. Objective - Vital Signs/Intake and Output Vital Signs (last 24 hours): Temp Pulse Resp BP Pulse Ox 97.7 F 92 H 18 144/81 96 07/11/17 09:40 07/11/17 09:40 07/11/17 09:40 07/11/17 10:40 07/11/17 09:40 Intake and Output: 07/11/17 07/11/17 06:59 18:59 Intake Total 350 250 Balance 350 250 - Medications Medications: Current Medications Aspirin (Ecotrin) 325 mg PO DAILY [facility] Last Admin: 07/11/17 11:01 Dose: Not Given Heparin Sodium (Porcine) (Heparin) 5,000 units SC Q12 [facility] Last Admin: 07/11/17 09:21 Dose: Not Given Vancomycin/Sodium Chloride (Vancomycin 1 Gm/Ns 200 Ml) 1 gm in 200 mls @ 133 mls/hr IVPB MWF [facility] PRN Reason: Protocol Stop: 07/16/17 12:01 Ceftriaxone Sodium 1 gm/ (Sodium Chloride) 100 mls @ 100 mls/hr IVPB DAILY [facility] PRN Reason: Protocol Last Admin: 07/11/17 09:21 Dose: Not Given Lidocaine/Prilocaine (Emla) 0.5 gm TOP MWF [facility] Last Admin: 07/11/17 08:42 Dose: Not Given Morphine Sulfate (Morphine) 2 mg IVP Q4 PRN PRN Reason: Pain, moderate (4-7) Rosuvastatin Calcium (Crestor) 10 mg PO HS [facility] Sevelamer Carbonate (Renvela) 2,400 mg PO TIDCC [facility] Last Admin: 07/11/17 07:51 Dose: 2,400 mg Vitamin B Complex/Vit C/Folic Acid (Nephro-Hair) 1 tab PO 0800 [facility] Last Admin: 07/11/17 07:51 Dose: 1 tab - Labs Labs: 07/11/17 09:53 07/11/17 09:53 PT 10.7 SECONDS (9.7-12.2) 07/10/17 06:58 INR 1.0 07/10/17 06:58 APTT 33 SECONDS (21-34) 07/10/17 06:58 - Additional Findings Additional findings: - Constitutional Appears: Non-toxic, No Acute Distress - Head Exam Head Exam: ATRAUMATIC, NORMAL INSPECTION, NORMOCEPHALIC - Eye Exam Eye Exam: EOMI, Normal appearance - ENT Exam ENT Exam: Mucous Membranes Moist - Respiratory Exam Respiratory Exam: NORMAL BREATHING PATTERN. absent: Accessory Muscle Use, Wheezes, Respiratory Distress - Cardiovascular Exam Cardiovascular Exam: absent: JVD - GI/Abdominal Exam GI & Abdominal Exam: Soft. absent: Guarding, Rigid, Tenderness, Rebound - Extremities Exam Extremities Exam: absent: Calf Tenderness Additional comments: Right foot tenderness. Dressing in place - CDI R AVF in place, used during dialysis session. - Neurological Exam Neurological Exam: Alert, Awake, Oriented x3 - Skin Skin Exam: Dry, Normal Color, Warm Assessment and Plan - Assessment and Plan (Free Text) Assessment: 57oy M with severe PVD here with right foot ulcer. PVD 3/: POD 1 s/p csi atherectomy of right popliteal artery. balloon dcb 5x60 to right popliteal. aortofemoral angiogram via left groin. - Vascular Surgery, Dr. Wiggins, f/u recs - gangrene right foot Vancomycin 1 Gm/Ns 200 Ml) 1 gm in 200 mls @ 133 mls/hr IVPB MWF [facility] Ceftriaxone Sodium 1 gm/ (Sodium Chloride) 100 mls @ 100 mls/hr IVPB DAILY [facility] Morphine) 2 mg IVP Q4 PRN ESRD Continue HD MWF Neprhology consult, Dr. Merlos, f/u recs Ecotrin) 325 mg PO DAILY [facility] Lidocaine/Prilocaine (Emla) 0.5 gm TOP MWF [facility] Renvela) 2,400 mg PO TIDCC [facility] Nephro-Hair) 1 tab PO 0800 [facility] Diabetes Crestor) 10 mg PO HS [facility] Anemia PRBC as needed for anemia. not On ZACHERY as last Hb 13.8 Electrolyte Imbalance Continue with phos binders home dose Renvela) 2,400 mg PO TIDCC [facility] Prophylaxis Heparin) 5,000 units SC Q12 [facility] Case discussed with attending. All medical management as per Dr. Kimani Barillas.
[2017-07-11] MEDS: Vancomycin 1 gm/NS 200 ml 1 GM/200 ML BAG IVPB SCH ×2 (12:00→15:05)
--- NOTE | 2017-07-11 12:08 | CP.PCM.PN ---
Subjective - Date & Time of Evaluation Date of Evaluation: 07/11/17 Time of Evaluation: 07:15 - Subjective Subjective: Vascular Surgery Progress note. Dr. Wiggins. Pt seen and examined at bedside. Does report mild pain to right lower extremity. No other complaints. Objective - Vital Signs/Intake and Output Vital Signs (last 24 hours): Temp Pulse Resp BP Pulse Ox 97.7 F 92 H 18 120/75 96 07/11/17 09:40 07/11/17 09:40 07/11/17 09:40 07/11/17 11:40 07/11/17 09:40 Intake and Output: 07/11/17 07/11/17 06:59 18:59 Intake Total 350 250 Balance 350 250 - Medications Medications: Current Medications Aspirin (Ecotrin) 325 mg PO DAILY [facility] Last Admin: 07/11/17 11:01 Dose: Not Given Heparin Sodium (Porcine) (Heparin) 5,000 units SC Q12 [facility] Last Admin: 07/11/17 09:21 Dose: Not Given Vancomycin/Sodium Chloride (Vancomycin 1 Gm/Ns 200 Ml) 1 gm in 200 mls @ 133 mls/hr IVPB MWF [facility] PRN Reason: Protocol Stop: 07/16/17 12:01 Ceftriaxone Sodium 1 gm/ (Sodium Chloride) 100 mls @ 100 mls/hr IVPB DAILY [facility] PRN Reason: Protocol Last Admin: 07/11/17 09:21 Dose: Not Given Lidocaine/Prilocaine (Emla) 0.5 gm TOP F [facility] Last Admin: 07/11/17 08:42 Dose: Not Given Morphine Sulfate (Morphine) 2 mg IVP Q4 PRN PRN Reason: Pain, moderate (4-7) Rosuvastatin Calcium (Crestor) 10 mg PO HS [facility] Sevelamer Carbonate (Renvela) 2,400 mg PO TIDCC [facility] Last Admin: 07/11/17 07:51 Dose: 2,400 mg Vitamin B Complex/Vit C/Folic Acid (Nephro-Hair) 1 tab PO 0800 [facility] Last Admin: 07/11/17 07:51 Dose: 1 tab - Labs Labs: 07/11/17 09:53 07/11/17 09:53 PT 10.7 SECONDS (9.7-12.2) 07/10/17 06:58 INR 1.0 07/10/17 06:58 APTT 33 SECONDS (21-34) 07/10/17 06:58 - Constitutional Appears: Well, Non-toxic, No Acute Distress - Head Exam Head Exam: ATRAUMATIC, NORMAL INSPECTION, NORMOCEPHALIC - Eye Exam Eye Exam: EOMI, Normal appearance - ENT Exam ENT Exam: Mucous Membranes Moist - Respiratory Exam Respiratory Exam: NORMAL BREATHING PATTERN. absent: Accessory Muscle Use, Respiratory Distress - Cardiovascular Exam Cardiovascular Exam: absent: JVD - GI/Abdominal Exam GI & Abdominal Exam: Soft. absent: Distended, Guarding, Rigid, Tenderness, Rebound - Extremities Exam Additional comments: extermities warm bilaterally. Mild tenderness to palpation of the right foot. Dressings in place clean, dry and intact. Left groin dressing in place, clean, dry and intact. - Neurological Exam Neurological Exam: Alert, Awake, Oriented x3 - Psychiatric Exam Psychiatric exam: Normal Affect, Normal Mood - Skin Skin Exam: Dry, Intact, Normal Color, Warm Assessment and Plan - Assessment and Plan (Free Text) Assessment: 57yo M with severe PVD. S/P selective peripheral angio with Right popliteal atherectomy on 07/10/17. POD1 Plan: - Continue to monitor pain - Keep right lower extremity elevated - Continue Abx - Pain management - Encourage PT/OT. OOBTC Further recs as per Dr. Rosalie Gaitan PGY1 surgery pager: [phone]
[2017-07-11 13:38] VITALS: BP 105/75
--- NOTE | 2017-07-11 15:06 | CP.PCM.PN ---
Subjective - Date & Time of Evaluation Date of Evaluation: 07/11/17 Time of Evaluation: 15:01 - Subjective Subjective: Podiatry note for Dr. Gonzalez 57 yo male patient was seen at bedside this morning concerning right foot ulceration. Patient is resting comfortably in bed with no overnight acute distress. AAOx3, NAD. Patient complains of mild pain to right lower extremity distal to ankle joint. Patient states he is feeling much better now and wishes to be discharged. Patient denies of any other pedal complaints. Patient denies of any N/V/F/C or SOB today 1 day s/p aortofemoral angiogram via left groin, csi atherectomy of right popliteal artery,balloon catheter to right popliteal by Dr. Wiggins Objective - Vital Signs/Intake and Output Vital Signs (last 24 hours): Temp Pulse Resp BP Pulse Ox 97.5 F L 97 H 16 105/75 98 07/11/17 13:10 07/11/17 13:10 07/11/17 13:10 07/11/17 13:10 07/11/17 13:10 Intake and Output: 07/11/17 07/11/17 06:59 18:59 Intake Total 350 830 Balance 350 830 - Medications Medications: Current Medications Aspirin (Ecotrin) 325 mg PO DAILY [facility] Last Admin: 07/11/17 11:01 Dose: Not Given Heparin Sodium (Porcine) (Heparin) 5,000 units SC Q12 [facility] Last Admin: 07/11/17 09:21 Dose: Not Given Vancomycin/Sodium Chloride (Vancomycin 1 Gm/Ns 200 Ml) 1 gm in 200 mls @ 133 mls/hr IVPB MWF [facility] PRN Reason: Protocol Stop: 07/16/17 12:01 Ceftriaxone Sodium 1 gm/ (Sodium Chloride) 100 mls @ 100 mls/hr IVPB DAILY [facility] PRN Reason: Protocol Last Admin: 07/11/17 13:54 Dose: 100 mls/hr Lidocaine/Prilocaine (Emla) 0.5 gm TOP F [facility] Last Admin: 07/11/17 08:42 Dose: Not Given Morphine Sulfate (Morphine) 2 mg IVP Q4 PRN PRN Reason: Pain, moderate (4-7) Rosuvastatin Calcium (Crestor) 10 mg PO HS [facility] Sevelamer Carbonate (Renvela) 2,400 mg PO TIDCC [facility] Last Admin: 07/11/17 13:00 Dose: 2,400 mg Vitamin B Complex/Vit C/Folic Acid (Nephro-Hair) 1 tab PO 0800 [facility] Last Admin: 07/11/17 07:51 Dose: 1 tab - Labs Labs: 07/11/17 09:53 07/11/17 09:53 PT 10.7 SECONDS (9.7-12.2) 07/10/17 06:58 INR 1.0 07/10/17 06:58 APTT 33 SECONDS (21-34) 07/10/17 06:58 - Constitutional Appears: Well, Non-toxic, No Acute Distress - Head Exam Head Exam: ATRAUMATIC - Extremities Exam Additional comments: Right lower extremity exam DERM: No open wound noted. Early stage ulceration noted to plantar aspect of right foot sub-met head 5. No drainage is noted. No mal-odor noted. No sign of acute infection is noted. VASC: Non-palpable DP and PT noted bilaterally. PERSONAL LINES ADVISOR less than 3 seconds to all digits ORTHO: Pain on palpation to joints distal to ankle. Decreased ROM 2ndary to guarding NEURO: Gross sensation intact - Neurological Exam Neurological Exam: Alert, Awake, Oriented x3 - Psychiatric Exam Psychiatric exam: Normal Affect, Normal Mood Assessment and Plan - Assessment and Plan (Free Text) Assessment: 57 yo male patient with right foot chronic ulceration - healing, closed now Plan: Patient was seen, evaluated labs and vitals reviewed discussed in detail with attending Dr. Gonzalez Right foot dressed with Betadine, DSD 1 day s/p aortofemoral angiogram via left groin, csi atherectomy of right popliteal artery,balloon catheter to right popliteal by Dr. Wiggins Continue IV Abx. Podiatry will continue to follow inhouse
--- NOTE | 2017-07-11 15:29 | CP.PCM.PN ---
Subjective - Date & Time of Evaluation Date of Evaluation: 07/11/17 Time of Evaluation: 15:28 - Subjective Subjective: Nephrology Consultation Note: Assessment: Stable Diabetic chronic Kidney Disease (E11.22) Hypertensive Chronic Kidney Disease (I12.0) End stage renal disease (N18.6) dependence on hemodialysis (Z99.2) (MWF) via AVF Anemia (D64.9), Hyperphosphatemia (E83.39), Secondary Hyperparathyroidism (E21.1 ), HTN (I12.0) PVD with non healing Rt foot ulcer s/p atherectomy and ballon angioplasty of Rt popiteal arterry 07/10/17 hx of PPM Plan: Will plan for dialysis today as ordered. Continue with Nephrovite 1 tab/day. PRBC as needed for anemia. not On ZACHERY as last Hb 13.8 Continue with phos binders home dose BP control with meds as ordered. Glycemic control, Dialysis consistent diet Further work up/management as per primary team Dose meds/antibiotics (if needed) for ESRD status. Avoid fleets enema/magnesium based laxatives. vancomycin changed to MWF schedule. check random vanco level prior to next dose. started ASA and statin d/c planning as per primary team. stable for d/c from renal perspective when planned Thanks for allowing me to participate in care of your patient. Will follow patient with you. Please call if any Qs. d/w team Dr Obed Ortiz Office: [phone] HPI: Pt is a 57 M with hx of ESRD on hemodialysis (MWF) via, last dialysis mon, chronic anemia, hyperphosphatemia, secondary hyperparathyroidism, Diabetes Mellitus, hypertension, PVD presented with complaints of leg ulcer and leg claudication pain concerns for PVD and being planned for PVD eval and further interventions renal consult for ESRD management. he has been on HD x 6 years ROS: Cardiovascular: No chest pain. Pulmonary: No shortness of breath Gastrointestinal: denies abdominal pain No nausea. No vomiting. Genitourinary: No pain while urinating. Denies blood in urine. makes only small amount of urine All other negative except as mentioned in HPI Physical Examination: seen on HD General Appearance: Comfortable, in no acute respiratory distress, co-operative . Vitals reviewed and noted as below Head; Atraumatic, normocephalic ENT: no ulcers no thrush. Tongue is midline. Oropharynx: no rash or ulcers. EYES: Pupils are equal, round and reactive to light accommodation. Eye muscles and extraocular movement intact. Sclera is anicteric. Neck; supple no lymphadenopathy, no thyromegaly or bruit Lungs: Normal respiratory rate/effort. Breath sounds bilateral equal and clear Heart: Normal rate. s1s2 normal. No rub or gallop. Extremities: no edema. No varicose veins. ulcer at Rt foot plantar aspect Neurological: Patient is alert, awake and oriented to person, place and time. No focal deficit. Strength bilateral appropriate and equal Skin: Warm and dry. Normal turgor. No rash. Palpitation: Normal elasticity for age Abdomen: Abdomen is soft. Bowel sounds +. There is no abdominal tenderness, no guarding/rigidity or organomegaly Psych: normal insight and normal affect/mood MSK: no joint tenderness or swelling. Digits and nails normal, no deformity : kidney or bladder not palpable Access: AVF Labs/imaging reviewed. Past medical history, past surgical history, family history, social history, allergy reviewed and noted as below Family Hx: no hx of CKD. Non contributory Objective - Vital Signs/Intake and Output Vital Signs (last 24 hours): Temp Pulse Resp BP Pulse Ox 97.5 F L 97 H 16 105/75 98 07/11/17 13:10 07/11/17 13:10 07/11/17 13:10 07/11/17 13:10 07/11/17 13:10 Intake and Output: 07/11/17 07/11/17 06:59 18:59 Intake Total 350 830 Balance 350 830 - Medications Medications: Current Medications Aspirin (Ecotrin) 325 mg PO DAILY [facility] Last Admin: 07/11/17 11:01 Dose: Not Given Heparin Sodium (Porcine) (Heparin) 5,000 units SC Q12 [facility] Last Admin: 07/11/17 09:21 Dose: Not Given Vancomycin/Sodium Chloride (Vancomycin 1 Gm/Ns 200 Ml) 1 gm in 200 mls @ 133 mls/hr IVPB MWF [facility] PRN Reason: Protocol Stop: 07/16/17 12:01 Last Admin: 07/11/17 15:05 Dose: 133 mls/hr Ceftriaxone Sodium 1 gm/ (Sodium Chloride) 100 mls @ 100 mls/hr IVPB DAILY [facility] PRN Reason: Protocol Last Admin: 07/11/17 13:54 Dose: 100 mls/hr Lidocaine/Prilocaine (Emla) 0.5 gm TOP MWF [facility] Last Admin: 07/11/17 08:42 Dose: Not Given Morphine Sulfate (Morphine) 2 mg IVP Q4 PRN PRN Reason: Pain, moderate (4-7) Rosuvastatin Calcium (Crestor) 10 mg PO HS [facility] Sevelamer Carbonate (Renvela) 2,400 mg PO TIDCC [facility] Last Admin: 07/11/17 13:00 Dose: 2,400 mg Vitamin B Complex/Vit C/Folic Acid (Nephro-Hair) 1 tab PO 0800 [facility] Last Admin: 07/11/17 07:51 Dose: 1 tab - Labs Labs: 07/11/17 09:53 07/11/17 09:53 PT 10.7 SECONDS (9.7-12.2) 07/10/17 06:58 INR 1.0 07/10/17 06:58 APTT 33 SECONDS (21-34) 07/10/17 06:58
[2017-07-11 18:12] VITALS: PULSE 98; RESP 20; TEMP 97.8; O2SAT 97
--- NOTE | 2017-07-11 19:17 | CP.PCM.PN ---
Subjective - Date & Time of Evaluation Date of Evaluation: 07/11/17 Time of Evaluation: 07:30 - Subjective Subjective: clinically same Objective - Vital Signs/Intake and Output Vital Signs (last 24 hours): Temp Pulse Resp BP Pulse Ox 97.8 F 98 H 20 105/75 97 07/11/17 15:15 07/11/17 15:15 07/11/17 15:15 07/11/17 13:10 07/11/17 15:15 Intake and Output: 07/11/17 07/12/17 18:59 06:59 Intake Total 830 Balance 830 - Medications Medications: Current Medications Aspirin (Ecotrin) 325 mg PO DAILY [facility] Last Admin: 07/11/17 11:01 Dose: Not Given Heparin Sodium (Porcine) (Heparin) 5,000 units SC Q12 [facility] Last Admin: 07/11/17 09:21 Dose: Not Given Vancomycin/Sodium Chloride (Vancomycin 1 Gm/Ns 200 Ml) 1 gm in 200 mls @ 133 mls/hr IVPB MWF [facility] PRN Reason: Protocol Stop: 07/16/17 12:01 Last Admin: 07/11/17 15:05 Dose: 133 mls/hr Ceftriaxone Sodium 1 gm/ (Sodium Chloride) 100 mls @ 100 mls/hr IVPB DAILY [facility] PRN Reason: Protocol Last Admin: 07/11/17 13:54 Dose: 100 mls/hr Lidocaine/Prilocaine (Emla) 0.5 gm TOP MWF [facility] Last Admin: 07/11/17 08:42 Dose: Not Given Morphine Sulfate (Morphine) 2 mg IVP Q4 PRN PRN Reason: Pain, moderate (4-7) Rosuvastatin Calcium (Crestor) 10 mg PO HS [facility] Sevelamer Carbonate (Renvela) 2,400 mg PO TIDCC [facility] Last Admin: 07/11/17 18:46 Dose: 2,400 mg Vitamin B Complex/Vit C/Folic Acid (Nephro-Hair) 1 tab PO 0800 [facility] Last Admin: 07/11/17 07:51 Dose: 1 tab - Labs Labs: 07/11/17 09:53 07/11/17 09:53 PT 10.7 SECONDS (9.7-12.2) 07/10/17 06:58 INR 1.0 07/10/17 06:58 APTT 33 SECONDS (21-34) 07/10/17 06:58
== END 2017-07-11 22:15 | disposition home or self-care (01) | DRG 270 ==
LOC: C.ER 11:16 → C.9E 14:06 → C.3T 17:15
PROVIDERS: ADMIT Internal Medicine Nephrology; ATTEND Internal Medicine Nephrology
PROC: 5A1D70Z Performance of Urinary Filtration, Intermittent, Less than 6 Hours Per Day (ICD-10-PCS; 2017-07-09)
PROC: 047M3Z1 Dilation of Right Popliteal Artery using Drug-Coated Balloon, Percutaneous Approach (ICD-10-PCS; principal; 2017-07-10)
PROC: 04CM3ZZ Extirpation of Matter from Right Popliteal Artery, Percutaneous Approach (ICD-10-PCS; 2017-07-10)
PROC: 5A1D70Z Performance of Urinary Filtration, Intermittent, Less than 6 Hours Per Day (ICD-10-PCS; 2017-07-11)
DX: E11.52 Type 2 diabetes mellitus with diabetic peripheral angiopathy with gangrene (principal); N18.6 End stage renal disease; E11.621 Type 2 diabetes mellitus with foot ulcer; L97.519 Non-pressure chronic ulcer of other part of right foot with unspecified severity; I13.2 Hypertensive heart and chronic kidney disease with heart failure and with stage 5 chronic kidney disease, or end stage renal disease; E11.42 Type 2 diabetes mellitus with diabetic polyneuropathy; E11.22 Type 2 diabetes mellitus with diabetic chronic kidney disease; N25.81 Secondary hyperparathyroidism of renal origin; E83.39 Other disorders of phosphorus metabolism; D64.9 Anemia, unspecified; Z95.0 Presence of cardiac pacemaker; Z99.2 Dependence on renal dialysis; Z79.899 Other long term (current) drug therapy; Z87.891 Personal history of nicotine dependence; Z82.3 Family history of stroke; Z97.4 Presence of external hearing-aid